=== PATIENT | male | born 1930 | race Caucasian/White ===

== ENCOUNTER 2016-10-24 05:25 | Inpatient (IN) | payer OTHER ==
[~2016-10-24] VITALS: Ht 165.1 cm; Wt 68.0 kg
[2016-10-24] MEDS ORDERED: FENO48TA4 PO (06:37)
[2016-10-24] MEDS ORDERED: COR12.5 PO (06:37)
[2016-10-24] MEDS ORDERED: OMEP40CA33 PO (06:37)
[2016-10-24] MEDS ORDERED: LISI40TA4 PO (06:37)
[2016-10-24] MEDS ORDERED: NIFE10CA2 PO (06:37)
[2016-10-24] MEDS ORDERED: ROPIVACAINE 40 MG/20 ML AMP EP ONE (07:06)
[2016-10-24] MEDS ORDERED: MIDAZOLAM HCL 5 MG/5 ML VIAL IVP ONE (07:06)
[2016-10-24] MEDS ORDERED: ROPIVACAINE 0.2% (NAROPIN) PF SOLUTION 100 ML BOTTLE EP ONE (07:06)
[2016-10-24] MEDS ORDERED: TRANEXAMIC ACID 1,000 MG/10 ML VIAL IV ONE (07:06)
[2016-10-24] MEDS ORDERED: fentaNYL CITRATE/PF 100 MCG/2 ML AMP IVP ONE (07:06)
[2016-10-24] MEDS ORDERED: CEFAZOLIN 2 GM IVPB PREMIX 50 ML IV ONE (07:06)
[2016-10-24] MEDS ORDERED: PROPOFOL 200MG/ 20ML VIAL (DIPRIVAN) IV ONE (07:06)
[2016-10-24] MEDS ORDERED: LR 1,000 ML IV.SOLN IV ONE (07:06)
[2016-10-24] MEDS ORDERED: BUPIVACAINE /EPINEPHRINE/PF 0.25% 30 ML VIAL INJ ONE (07:06)
[2016-10-24] MEDS ORDERED: KETOROLAC TROMETHAMINE 30 MG VIAL IVP ONE (07:06)
[2016-10-24] MEDS ORDERED: SUCCINYLCHOLINE CHLORIDE 20 MG/ML(QUELICIN) IVP ONE (07:06)
[2016-10-24] MEDS ORDERED: NS 100 ML BAG IV ONE (07:06)
[2016-10-24] MEDS ORDERED: SEVOFLURANE 15 MIN GAS INH ONE (07:06)
[2016-10-24] MEDS ORDERED: POLYMYXIN 500,000/BACIT.10,000 UNITS in NS IRR 1 L IR ONE (07:15)
[2016-10-24] MEDS ORDERED: LR 1,000 ML IV SCH (08:25)
[2016-10-24] MEDS ORDERED: ONDANSETRON HCL 4 MG/2 ML VIAL IVP PRN (08:30)
[2016-10-24] MEDS ORDERED: MEPERIDINE HCL/PF 25 MG/ML DISP.SYRIN IVP PRN ×2 (08:30)
[2016-10-24] MEDS ORDERED: DIPHENHYDRAMINE INJ 50 MG/ML VIAL IVP PRN (10:15)
[2016-10-24] MEDS ORDERED: HYDROcodone/ACETAMIN 5-325 MG TAB (NORCO/ VICODIN) PO PRN (10:15)
[2016-10-24] MEDS ORDERED: ACETAMINOPHEN 325 MG TABLET PO PRN (10:15)
[2016-10-24] MEDS ORDERED: HYDROmorphone 2 MG/ML VIAL IVP PRN (10:15)
[2016-10-24] MEDS ORDERED: MEPERIDINE HCL/PF 25 MG/ML DISP.SYRIN ONE (11:43)
[2016-10-24 12:12] VITALS: BP_SYST 115
[2016-10-24 12:40] VITALS: BP_SYST 115
[2016-10-24] MEDS: CEFAZOLIN 1 GM IVPB PREMIX 50 ML IV SCH ×2 (13:59→21:44)
[2016-10-24 15:25] VITALS: BP_SYST 115
[2016-10-24 16:19] VITALS: BP_SYST 114
[2016-10-24 20:00] VITALS: BP_SYST 153
[2016-10-24] MEDS: DOCUSATE SODIUM 100 MG CAPSULE PO SCH (21:43)
[2016-10-24] MEDS: CARVEDILOL 12.5 MG TABLET (COREG) PO SCH (21:44)
[2016-10-25 01:07] VITALS: BP_SYST 133
[2016-10-25 04:05] VITALS: BP_SYST 164
[2016-10-25 06:12] LABS: ANION GAP 4 (5-15); CALCIUM 9.7 mg/dL (8.4-11.0); CHLORIDE 107 mmol/L (98-107); CREATININE 1.54 mg/dL (0.55-1.30); GLUCOSE 136 mg/dL (70-99); POTASSIUM 4.3 mmol/L (3.5-5.1); SODIUM SERUM 138 mmol/L (136-145); UREA NITROGEN, BLOOD 27 mg/dL (8-21)
[2016-10-25 06:20] LABS: BASOPHILS % (AUTO) 0.1 % (0.0-2.0); HEMATOCRIT 33.4 % (36-54); HEMOGLOBIN 11.2 g/dL (14.0-18.0); LYMPHOCYTES # (AUTO) 1.6 K/uL (1.0-5.5); LYMPHOCYTES % (AUTO) 9.8 % (20.5-51.5); MEAN CORPUSCULAR HEMOGLOBIN 31 pg (27-31); MEAN CORPUSCULAR HGB CONC 34 % (32-36); MEAN CORPUSCULAR VOLUME 91 fL (79.0-98.0); MONOCYTES # (AUTO) 1.1 K/uL (0.0-1.0); MONOCYTES % (AUTO) 6.6 % (1.7-9.3); NEUTROPHILS % (AUTO) 83.5 % (40.0-70.0); PLATELET COUNT (AUTO) 215 K/uL (130-430); RED BLOOD CELL COUNT(AUTO) 3.67 MIL/uL (4.2-6.2); RED CELL DISTRIBUTION WIDTH 13.2 % (9.0-15.0); WHITE BLOOD COUNT (AUTO) 16.7 K/uL (4.8-10.8)
[2016-10-25 08:00] VITALS: BP_SYST 160
[2016-10-25] MEDS: FENOFIBRATE 160 MG TABLET PO SCH (08:24)
[2016-10-25] MEDS: OMEPRAZOLE 20 MG CAPSULE.DR (PriLOSEC) PO SCH (08:25)
[2016-10-25] MEDS: DOCUSATE SODIUM 100 MG CAPSULE PO SCH ×2 (08:25→20:43)
[2016-10-25] MEDS: NIFEDIPINE 60 MG TABLET.SA (PROCARDIA XL 60 MG) PO SCH (08:25)
[2016-10-25] MEDS: ENOXAPARIN SODIUM 40 MG/0.4 ML SYRINGE SUBCUT SCH (08:25)
[2016-10-25] MEDS: CARVEDILOL 12.5 MG TABLET (COREG) PO SCH ×2 (08:26→20:44)
[2016-10-25] MEDS: LISINOPRIL 20 MG TABLET PO SCH (08:26)
[2016-10-25 12:56] VITALS: BP_SYST 146
[2016-10-25] MEDS: HYDROcodone/ACETAMIN 5-325 MG TAB (NORCO/ VICODIN) PO PRN ×2 (15:53→20:54)
[2016-10-25 16:57] VITALS: BP_SYST 132
[2016-10-25 20:00] VITALS: BP_SYST 145
[2016-10-26 00:07] VITALS: BP_SYST 168
[2016-10-26] MEDS: HYDROcodone/ACETAMIN 5-325 MG TAB (NORCO/ VICODIN) PO PRN ×3 (01:47→15:58)
[2016-10-26 03:47] VITALS: BP_SYST 160
[2016-10-26 08:13] VITALS: BP_SYST 159
[2016-10-26] MEDS: LISINOPRIL 20 MG TABLET PO SCH (09:19)
[2016-10-26] MEDS: ENOXAPARIN SODIUM 40 MG/0.4 ML SYRINGE SUBCUT SCH (09:19)
[2016-10-26] MEDS: NIFEDIPINE 60 MG TABLET.SA (PROCARDIA XL 60 MG) PO SCH (09:20)
[2016-10-26] MEDS: CARVEDILOL 12.5 MG TABLET (COREG) PO SCH ×2 (09:20→21:01)
[2016-10-26] MEDS: DOCUSATE SODIUM 100 MG CAPSULE PO SCH ×2 (09:20→21:01)
[2016-10-26] MEDS: OMEPRAZOLE 20 MG CAPSULE.DR (PriLOSEC) PO SCH (09:20)
[2016-10-26] MEDS: FENOFIBRATE 160 MG TABLET PO SCH (09:20)
[2016-10-26 12:45] VITALS: BP_SYST 163
[2016-10-26 16:59] VITALS: BP_SYST 150
[2016-10-26 17:44] VITALS: BP_SYST 150
== END 2016-10-26 21:20 | DRG 470 ==
LOC: SMU 05:25
PROVIDERS: ADMIT Orthopaedic Surgery; ATTEND Orthopaedic Surgery
PROC: 0SRB01A Replacement of Left Hip Joint with Metal Synthetic Substitute, Uncemented, Open Approach (ICD-10-PCS; principal; 2016-10-24 07:30)
DX: M16.12 Unilateral primary osteoarthritis, left hip (principal); I10 Essential (primary) hypertension; Z95.1 Presence of aortocoronary bypass graft
CPT/HCPCS: 36415; 72170-TC; 80048; 85025; 86886; 86900; 86901; 87081; 88304; 88305; 88311; 94010; 94760; 97110-GP; 97116-GP; 97530-GP; C1713; C1776; J0330; J0690; J1170; J1650; J1885; J2175; J2250; J2704; J2795; J3010; J3490; J7120